=== PATIENT | male | born 1970 | race Caucasian/White ===

== ENCOUNTER 2024-07-24 07:28 | Day surgery (SDC) | payer MEDICAID ==
[~2024-07-24] VITALS: Ht 188 cm; Wt 124.7 kg
[~2024-07-24 07:28] MED LIST: BACL10TA PO; DOCU-192 PO; HYDR-3919 PO; ZOLP5TAB2 PO
[2024-07-24] MEDS ORDERED: MIDAZOLAM HCL 5 MG/5 ML VIAL ONE ×2 (08:03→09:25)
[2024-07-24] MEDS ORDERED: MEPERIDINE 100 MG INJ. 100 MG/ML VIAL ONE (08:03)
[2024-07-24] MEDS ORDERED: SIMETHICONE 40 MG/0.6 ML ML ONE (08:03)
[2024-07-24 13:44] VITALS: O2SAT 98
[2024-07-24 15:19] VITALS: BP_SYST 144; PULSE 77; RESP 1
== END 2024-07-24 10:45 | disposition home or self-care (01) ==
LOC: SDS 07:28 → SMU 07:30 → SDS 10:45
PROVIDERS: ATTEND Internal Medicine Gastroenterology
DX: Z12.11 Encounter for screening for malignant neoplasm of colon (principal); R11.0 Nausea; D17.5 Benign lipomatous neoplasm of intra-abdominal organs; D12.5 Benign neoplasm of sigmoid colon; D12.8 Benign neoplasm of rectum; K29.50 Unspecified chronic gastritis without bleeding; K57.30 Diverticulosis of large intestine without perforation or abscess without bleeding; K64.8 Other hemorrhoids; K44.9 Diaphragmatic hernia without obstruction or gangrene; E78.5 Hyperlipidemia, unspecified; K21.9 Gastro-esophageal reflux disease without esophagitis; G43.909 Migraine, unspecified, not intractable, without status migrainosus; F41.9 Anxiety disorder, unspecified; Z79.899 Other long term (current) drug therapy
CPT/HCPCS: 45385; 43239; 99152; 87081; 36415; 88305; 88312; 88313; 99153; G0378; J2250; J2175; 45384